=== PATIENT | male | born 1955 | race Caucasian/White ===

== ENCOUNTER → 2017-01-21 | Outpatient (CLI) | payer MEDICARE, MEDICAID ==
[~2017-01-21] MED LIST: CELEBREX200 MG PO; CYMBALTA60 MG PO; DESYREL-DPS50 MG PO; MELATIN3 MG PO; NEURONTIN300 MG PO; TYLENOL EXTRA500 M1 PO
== END | disposition home or self-care (01) ==
LOC: RAD.S 16:30
DX: S79.911A Unspecified injury of right hip, initial encounter (principal); M25.551 Pain in right hip